=== PATIENT | male | born 1940 | race Caucasian/White ===

== ENCOUNTER 2016-09-15 09:24 | Emergency (ER) | payer MEDICARE, BC ==
--- NOTE | 2016-09-15 10:01 | Emergency Department Record ---
History of Present Illness - General Chief Complaint: Back Pain/Injury Stated Complaint: BACK PAIN Time Seen by Provider: 09/15/16 10:00 Source: Patient, RN notes reviewed - History of Present Illness Initial Comments: left flank pain for 2 weeks and no injuries and no vomiting or dysuria or diarrhea. No pulsating masses palpated. Onset/Timin -: Week(s) Similar Symptoms Previously: Yes Place: Other Radiation: Abdomen Severity scale (1-10): 8 Quality: Stabbing Consistency: Intermittent Improves With: None Worsens With: Deep breaths/cough, Movement, Other Context: Unknown Associated Symptoms: Abdominal pain, Constipation Treatments Prior to Arrival: Other medications - Related Data Home Medications Medication Instructions Recorded Confirmed Last Taken Aspirin [Aspir-Low] 81 mg PO DAILY 09/15/16 09/15/16 09/14/16 Atorvastatin Calcium [Lipitor] 40 mg PO DAILY 09/15/16 09/15/16 09/14/16 Calcium Carbonate [Calcium] 600 mg PO DAILY 09/15/16 09/15/16 09/14/16 Magnesium Oxide [Mag Ox] 400 mg PO DAILY 09/15/16 09/15/16 09/14/16 Metoprolol Tartrate 25 mg PO DAILY 09/15/16 09/15/16 09/14/16 Multivitamin [Multi-Vitamin Daily] 1 each PO DAILY 09/15/16 09/15/16 09/14/16 [place]-3 Fatty Acids/Fish Oil [Fish 1 each PO DAILY 09/15/16 09/15/16 09/14/16 Oil 1,000 mg Capsule] Previous Rx's Medication Instructions Recorded Cyclobenzaprine HCl [Flexeril] 5 mg PO TID #20 tab 09/15/16 Naproxen [Naprosyn] 500 mg PO BID #30 tablet 09/15/16 Allergies Allergy/AdvReac Type Severity Reaction Status Date / Time No Known Drug Allergies Allergy Verified 09/15/16 09:56 Travel Screening - Travel/Exposure Within Last 30 Days Have you traveled within the last 30 days?: No - Travel/Exposure Within Last Year Have you traveled outside the [place] in the last year?: No - Additonal Travel Details Have you been exposed to anyone with a communicable illness?: No - Travel Symptoms Symptom Screening: None Review of Systems Reviewed: No additional complaints except as noted below Constitutional: Reports: As per HPI. Denies: Chills, Fever, Malaise, Night sweats, Weakness, Weight change Eyes: Reports: As per HPI. Denies: Eye discharge, Eye pain, Photophobia, Vision change ENT: Reports: As per HPI. Denies: Congestion, Dental pain, Ear pain, Epistaxis , Hearing loss, Throat pain Respiratory: Reports: As per HPI. Denies: Cough, Dyspnea, Hemoptysis, Stridor, Wheezes Cardiovascular: Reports: As per HPI. Denies: Arrhythmia, Chest pain, Dyspnea on exertion, Edema, Murmurs, Orthopnea, Palpitations, Paroxysmal nocturnal dyspnea, Rheumatic Fever, Syncope Endocrine: Reports: As per HPI. Denies: Fatigue, Heat or cold intolerance, Polydipsia, Polyuria Gastrointestinal: Reports: As per HPI. Denies: Abdominal pain, Constipation, Diarrhea, Hematemesis, Hematochezia, Melena, Nausea, Vomiting Genitourinary: Reports: As per HPI. Denies: Dysuria, Frequency, Hematuria, Incontinence, Retention, Testicular pain, Testicular mass, Urgency Musculoskeletal: Reports: As per HPI. Denies: Arthralgia, Back pain, Gout, Joint swelling, Myalgia, Neck pain Skin: Reports: As per HPI. Denies: Bruising, Change in color, Change in hair/ nails, Lesions, Pruritus, Rash Neurological: Reports: As per HPI. Denies: Abnormal gait, Confusion, Headache, Numbness, Paresthesias, Seizure, Tingling, Tremors, Vertigo, Weakness Psychiatric: Reports: As per HPI. Denies: Anxiety, Auditory hallucinations, Depression, Homicidal thoughts, Suicidal thoughts, Visual hallucinations Hematological/Lymphatic: Reports: As per HPI. Denies: Anemia, Blood Clots, Easy bleeding, Easy bruising, Swollen glands Past Medical History - SOCIAL HISTORY Smoking Status: Current every day smoker Alcohol Use: Heavy Alcohol Use Comment: 2-3 daily Drug Use: None - RESPIRATORY Hx Respiratory Disorders: Yes Comment:: Lung lobe removal. - CARDIOVASCULAR Hx Cardio Disorders: Yes Comment:: cardiac bypass - NEURO Hx Neuro Disorders: No - GI Hx GI Disorders: No - Hx Genitourinary Disorders: No - ENDOCRINE Hx Endocrine Disorders: No - MUSCULOSKELETAL Hx Musculoskeletal Disorders: Yes Hx Arthritis: Yes - PSYCH Hx Psych Problems: No - HEMATOLOGY/ONCOLOGY Hx Hematology/Oncology Disorders: Yes Hx Cancer: Yes (lung) Family Medical History Any Significant Family History?: No Physical Exam - General General Appearance: Alert, Oriented x3, Cooperative, No acute distress - Head Head exam: Normal inspection - Eye Eye exam: Normal appearance, PERRL Pupils: Normal accommodation - ENT ENT exam: Normal exam, Mucous membranes moist, Normal external ear exam, Normal orophraynx, TM's normal bilaterally Ear exam: Normal external inspection. negative: External canal tenderness Nasal Exam: Normal inspection. negative: Discharge, Sinus tenderness Mouth exam: Normal external inspection, Tongue normal Teeth exam: Normal inspection. negative: Dental caries Throat exam: Normal inspection. negative: Tonsillar erythema, Tonsillar exudate - Neck Neck exam: Normal inspection, Full ROM. negative: Tenderness - Respiratory Respiratory exam: Normal lung sounds bilaterally. negative: Respiratory distress - Cardiovascular Cardiovascular Exam: Regular rate, Normal rhythm, Normal heart sounds - GI/Abdominal GI/Abdominal exam: Soft, Normal bowel sounds. negative: Tenderness - Rectal Rectal exam: Deferred - exam: Deferred - Extremities Extremities exam: Normal inspection, Full ROM, Normal capillary refill. negative: Tenderness - Back Back exam: Reports: Normal inspection, Full ROM, Tenderness (left flank pain but he moves around reasonably well.). Denies: Muscle spasm, Rash noted - Neurological Neurological exam: Alert, Normal gait, Oriented X3, Reflexes normal - Psychiatric Psychiatric exam: Normal affect, Normal mood - Skin Skin exam: Dry, Intact, Normal color, Warm Course Vital Signs 09/15/16 09:40 Temperature 97.9 F Pulse Rate 75 Respiratory 16 Rate Blood Pressure 152/96 Pulse Ox 97 - Reevaluation(s) Reevaluation #1: 09/15/16 12:44 feeling better Medical Decision Making - Data Complexity MDM Data: Labs Ordered and/or Reviewed, X-Ray Ordered and/or Reviewed (CT scan neg for obstructing stones ) - Lab Data Result diagrams: 09/15/16 11:20 09/15/16 11:20 Disposition Clinical Impression: Flank pain, acute Back pain Qualifiers: Back pain location: low back pain Chronicity: acute Back pain laterality: left Sciatica presence: without sciatica Qualified Code(s): M54.5 - Low back pain Lumbar strain Qualifiers: Encounter type: initial encounter Qualified Code(s): S39.012A - Strain of muscle, fascia and tendon of lower back, initial encounter Disposition: Home, Self-Care Condition: (1) Good Instructions: Low Back Strain (ED) Additional Instructions: follow up with chip [place] 4 days heat to back Prescriptions: Cyclobenzaprine HCl [Flexeril] 5 mg PO TID #20 tab Naproxen [Naprosyn] 500 mg PO BID #30 tablet Forms: Patient Portal Access Time of Disposition: 12:46
[2016-09-15] MEDS ORDERED: 0.9 % SODIUM CHLORIDE 1000ML 1,000 ML IV PRN (10:38)
[2016-09-15] MEDS ORDERED: KETOROLAC 30 MG/ML VIAL IVP ONE (10:38)
[2016-09-15 11:05] LABS: URINE APPEARANCE CLEAR; URINE BILIRUBIN NEGATIVE (NEGATIVE); URINE BLOOD NEGATIVE (NEGATIVE); URINE COLOR YELLOW; URINE GLUCOSE (UA) NEGATIVE (NEGATIVE); URINE KETONE NEGATIVE (NEGATIVE); URINE LEUKOCYTE ESTERASE NEGATIVE (NEGATIVE); URINE NITRITE NEGATIVE (NEGATIVE); URINE PROTEIN NEGATIVE (NEGATIVE); URINE UROBILINOGEN 0.2 E.U./dL (0.20 - 1.00)
[2016-09-15 11:26] LABS: BASO % 0.1 % (0-6); EOS % 2.1 % (0-6); GRAN % 66.8 % (47-80); HEMATOCRIT 45.2 % (42.0-52.0); HEMOGLOBIN 14.8 gm/dl (14.0-18.0); LYMPH % 19.2 % (16-45); MEAN CELL VOLUME 100.2 fl (81-97); MEAN CORPUSCULAR HEMOGLOBIN 32.8 pg (27-33); MEAN CORPUSCULAR HGB CONC 32.7 g/dl (32-36); MEAN PLATELET VOLUME 9.9 fl (7.4-10.4); MONO % 11.8 % (0-9); PLATELET COUNT 203 K/uL (130-400); RED BLOOD COUNT 4.51 M/uL (4.40-5.70); WHITE BLOOD COUNT W/O DIFF 7.7 K/uL (4.2-12.2)
[2016-09-15 11:37] LABS: BLOOD UREA NITROGEN 18 mg/dL (9-20); EST GLOMERULAR FILTRATION RATE > 60 ml/min; GLUCOSE,RANDOM 92 mg/dL (70-110)
== END 2016-09-15 13:03 | disposition home or self-care (01) ==
LOC: ER 09:24
DX: S39.012A Strain of muscle, fascia and tendon of lower back, initial encounter (principal); R30.0 Dysuria; X58.XXXA Exposure to other specified factors, initial encounter
CPT/HCPCS: 99284 ×2; 96374; 85025; 80048; 81003; 74176; J1885

== ENCOUNTER 2017-01-19 21:47 | Inpatient (IN) | payer MEDICARE, BC ==
[2017-01-19] MEDS ORDERED: IPRATROPIUM/ALBUTEROL (0.5MG/3MG) NEB INH ONE (22:24)
[2017-01-19] MEDS ORDERED: METHYLPREDNISOLONE PF 125MG/VIAL IVP ONE ×2 (22:53→23:33)
[2017-01-19] MEDS ORDERED: ALBUTEROL SULFATE (0.083%) 2.5 MG/3 ML NEB INH ONE (22:56)
--- NOTE | 2017-01-19 22:57 | Emergency Department Record ---
History of Present Illness - General Chief Complaint: Shortness of breath Stated Complaint: BLAKE Time Seen by Provider: 01/19/17 22:53 Source: Patient Mode of Arrival: Ambulatory Limitations: No limitations - History of Present Illness Initial Comments: 76 yo male presents to ED with a CC of cough, wheezing, and difficulty breathing for the past 1 week. Patient denies fevers, chills, or recent illness. Patient denies hisoty of COPD or asthma, but reports long smoking history as well as previous lung cancer history. Patient is concerned about possible bronchitis vs. pneumonia. MD Complaint: Cough, Shortness of breath Onset/Timin -: Week(s) Severity: Moderate Consistency: Intermittent Improves With: Nothing Worsens With: Coughing, Exertion Known History Of: Other Associated Symptoms: Cough Treatments Prior to Arrival: None - Related Data Home Oxygen Therapy: No Previous Rx's Medication Instructions Recorded Cyclobenzaprine HCl [Flexeril] 5 mg PO TID #20 tab 09/15/16 Naproxen [Naprosyn] 500 mg PO BID #30 tablet 09/15/16 Allergies Allergy/AdvReac Type Severity Reaction Status Date / Time No Known Drug Allergies Allergy Verified 09/15/16 09:56 Travel Screening - Travel/Exposure Within Last 30 Days Have you traveled within the last 30 days?: No - Travel Symptoms Symptom Screening: None Review of Systems Constitutional: Denies: Chills, Fever, Malaise, Night sweats Eyes: Denies: Eye discharge, Eye pain ENT: Reports: Congestion. Denies: Ear pain, Epistaxis Respiratory: Reports: Cough, Dyspnea, Wheezes Cardiovascular: Denies: Arrhythmia, Chest pain, Dyspnea on exertion, Orthopnea, Palpitations Endocrine: Denies: Fatigue, Heat or cold intolerance Gastrointestinal: Denies: Abdominal pain, Nausea, Vomiting Genitourinary: Denies: Incontinence, Retention Musculoskeletal: Denies: Arthralgia, Back pain, Gout, Joint swelling Skin: Denies: Bruising, Change in color, Change in hair/nails Neurological: Denies: Abnormal gait, Confusion, Headache, Seizure Psychiatric: Denies: Anxiety Hematological/Lymphatic: Denies: Anemia, Blood Clots Past Medical History - SOCIAL HISTORY Smoking Status: Current every day smoker - RESPIRATORY Hx Respiratory Disorders: Yes Comment:: Lung lobe removal. - CARDIOVASCULAR Hx Cardio Disorders: Yes Comment:: cardiac bypass - NEURO Hx Neuro Disorders: No - GI Hx GI Disorders: No - Hx Genitourinary Disorders: No - ENDOCRINE Hx Endocrine Disorders: No - MUSCULOSKELETAL Hx Musculoskeletal Disorders: Yes Hx Arthritis: Yes - PSYCH Hx Psych Problems: No - HEMATOLOGY/ONCOLOGY Hx Hematology/Oncology Disorders: Yes Hx Cancer: Yes (lung) Family Medical History Any Significant Family History?: Yes Family Hx Comment (NOT TO BE USED IN PLACE OF ITEMS BELOW): Dad w/Parkinson's Hx Heart Disease: Mother Physical Exam - General General Appearance: Alert, Oriented x3, Cooperative, Mild distress Limitations: No limitations - Head Head exam: Atraumatic, Normocephalic, Normal inspection Head exam detail: negative: Abrasion, Contusion, Moser's sign, General tenderness, Hematoma, Laceration - Eye Eye exam: Normal appearance. negative: Conjunctival injection, Periorbital swelling, Periorbital tenderness, Scleral icterus - ENT Ear exam: negative: Auricular hematoma, Auricular trauma Nasal Exam: negative: Active bleeding, Discharge, Dried blood, Foreign body Mouth exam: negative: Drooling, Laceration, Muffled voice, Tongue elevation - Neck Neck exam: Normal inspection. negative: Meningismus, Tenderness - Respiratory Respiratory exam: Decreased breath sounds, Prolonged expiratory, Wheezes - Cardiovascular Cardiovascular Exam: Regular rate, Normal rhythm, Normal heart sounds - GI/Abdominal GI/Abdominal exam: Soft. negative: Rebound, Rigid, Tenderness - Rectal Rectal exam: Deferred - exam: Deferred - Extremities Extremities exam: Normal inspection. negative: Calf tenderness, Pedal edema, Tenderness - Back Back exam: Denies: CVA tenderness (R), CVA tenderness (L) - Neurological Neurological exam: Alert, Normal gait, Oriented X3 - Psychiatric Psychiatric exam: Normal affect, Normal mood - Skin Skin exam: Normal color. negative: Abrasion Type of lesion: negative: abrasion Course Vital Signs 01/19/17 01/19/17 21:55 22:19 Temperature 98.4 F 98.3 F Pulse Rate 77 Pulse Rate [ 73 Pulse Ox Probe] Respiratory 18 24 Rate Blood Pressure 162/90 Blood Pressure 134/75 [Left Arm] Pulse Ox 88 L 93 L - Reevaluation(s) Reevaluation #1: 01/19/17 23:49 Labs reviewed and are grossly unremarkable for an acute process. CXR: Chronic changes, nothing acute. Reevaluation #2: 01/20/17 00:34 Attempted ambulating biox, patient became moderately dyspnic on examination, biox dropped to 85-86% on RA upon return to room #3. Will admit for observation for bronchospasm and hypoxia overnight. Reevaluation #3: 01/20/17 06:47 Case was discussed with Dr. Jeronimo, will accept admission at this time. Medical Decision Making - Lab Data Result diagrams: 01/19/17 23:04 01/19/17 23:04 Disposition Disposition: Admit Clinical Impression: Bronchospasm with bronchitis, acute, Hypoxia Disposition: Still a Patient at [facility] Decision to Admit: Admit from ER Decision to Admit Date: 01/20/17 Decision to Admit Time: 00:35 Condition: (2) Stable Time of Disposition: 00:35 Quality - Quality Measures Quality Measures: N/A - Blood Pressure Screening Does Patient Have Any of the Following: Active Dx of HTN Blood Pressure Classification: Hypertensive Reading Systolic Measurement: 162 Diastolic Measurement: 90 Screening for High Blood Pressure: Patient Exclusion, Hx of HTN [[id number]]
[2017-01-19 23:27] LABS: BASO % 0.2 % (0-6); EOS % 2.6 % (0-6); GRAN % 66.8 % (47-80); HEMATOCRIT 41.8 % (42.0-52.0); HEMOGLOBIN 14.1 gm/dl (14.0-18.0); LYMPH % 17.9 % (16-45); MEAN CELL VOLUME 101.5 fl (81-97); MEAN CORPUSCULAR HEMOGLOBIN 34.2 pg (27-33); MEAN CORPUSCULAR HGB CONC 33.7 g/dl (32-36); MEAN PLATELET VOLUME 10.2 fl (7.4-10.4); MONO % 12.5 % (0-9); PLATELET COUNT 196 K/uL (130-400); RED BLOOD COUNT 4.12 M/uL (4.40-5.70); RED CELL DISTRIBUTION WIDTH 13.3 % (11.5-14.5); WHITE BLOOD COUNT W/O DIFF 8.5 K/uL (4.2-12.2)
[2017-01-19 23:43] LABS: ALB/GLOB RATIO 1.2 (1.1-1.8); ALKALINE PHOSPHATASE 110 U/L (40-129); ALT/SGPT 17 U/L (<41); AST/SGOT 23 U/L (10.0-50.0); BLOOD UREA NITROGEN 14 mg/dL (8-23); CREATININE 0.9 mg/dL (0.7-1.2); EST GLOMERULAR FILTRATION RATE > 60 mL/min; GLUCOSE,RANDOM 108 mg/dL (74-109); TOTAL PROTEIN 7.3 g/dL (6.6-8.7)
[2017-01-20] MEDS ORDERED: 0.9 % SODIUM CHLORIDE 1000ML 1,000 ML IV PRN (01:36)
[2017-01-20] MEDS ORDERED: ALBUTEROL SULFATE (0.083%) 2.5 MG/3 ML NEB INH PRN (01:36)
[2017-01-20] MEDS: IPRATROPIUM/ALBUTEROL (0.5MG/3MG) NEB INH SCH ×5 (06:00→21:27)
--- NOTE | 2017-01-20 09:32 | History & Physical ---
History of Present Illness - Date of Service Date of Service for History & Physical: 01/20/17 - History of Present Illness Admitting Diagnosis: Bronchospasm with acute bronchitis. Hypoxia History of Present Illness: 76yo male with CC of difficulty breathing. He has history of lung cancer with right lobectomy in 2010, cardiac bypass in 2010, CAD, and COPD. He is a current smoker. states he has cut back to 7-10 cigarettes daily. Patient presented to the ED after 1 week of progressive shortness of breath. He was having dry cough, chills, and significant wheezing with chest congestion. While in the ED, patient was found to have oxygen saturation of 88% on room air. He had duoneb treatment with some provement in wheezing and o2 sat improved to 92% on 2L via NC. Chest XR showed chronic interstitial changes but not acute pathology. Patient received solumedrol 125mg IV and repeated breathing treatments. Wheezing and shortness of breath improved however his O2 saturation continued to drop to 88% on room air. His CBC and and CMP were unremarkable. Patient was admitted for COPD exacerbation. 01/20/17- Patient states he is feeling much better today. He continues to have a non-productive cough and wheezing but states his shortness of breath has improved. He denies fevers, chills or chest pain today. He was not sure if he had been diagnosed with COPD previously but admits to long history of smoking > 30py. He says his pcp, Dr. Jeronimo,, had given him an advair inaler to take twice daily but he only uses it when he feels like he is getting chest congestion. pcp: [facility] Travel Screening - Travel/Exposure Within Last 30 Days Have you traveled within the last 30 days?: No - Travel/Exposure Within Last Year Have you traveled outside the [place] in the last year?: No - Additonal Travel Details Have you been exposed to anyone with a communicable illness?: No - Travel Symptoms Symptom Screening: None Review of Systems Constitutional: Denies: Chills, Fever, Malaise, Night sweats Eyes: Denies: Eye discharge, Eye pain ENT: Reports: Congestion. Denies: Ear pain, Epistaxis Respiratory: Reports: Cough, Dyspnea, Wheezes Cardiovascular: Denies: Arrhythmia, Chest pain, Dyspnea on exertion, Orthopnea, Palpitations Endocrine: Denies: Fatigue, Heat or cold intolerance Gastrointestinal: Denies: Abdominal pain, Nausea, Vomiting Genitourinary: Denies: Incontinence, Retention Musculoskeletal: Denies: Arthralgia, Back pain, Gout, Joint swelling Skin: Denies: Bruising, Change in color, Change in hair/nails Neurological: Denies: Abnormal gait, Confusion, Headache, Seizure Psychiatric: Denies: Anxiety Hematological/Lymphatic: Denies: Anemia, Blood Clots Past Medical History - SOCIAL HISTORY Smoking Status: Current every day smoker - RESPIRATORY Hx Respiratory Disorders: Yes Comment:: Lung lobe removal. - CARDIOVASCULAR Hx Cardio Disorders: Yes Comment:: cardiac bypass - NEURO Hx Neuro Disorders: No - GI Hx GI Disorders: No - Hx Genitourinary Disorders: No - ENDOCRINE Hx Endocrine Disorders: No - MUSCULOSKELETAL Hx Musculoskeletal Disorders: Yes Hx Arthritis: Yes - PSYCH Hx Psych Problems: No - HEMATOLOGY/ONCOLOGY Hx Hematology/Oncology Disorders: Yes Hx Cancer: Yes (lung) Family Medical History Any Significant Family History?: Yes Family Hx Comment (NOT TO BE USED IN PLACE OF ITEMS BELOW): Dad w/Parkinson's Hx Heart Disease: Mother H&P Meds/Allergies - Allergies Allergies: Allergies Allergy/AdvReac Type Severity Reaction Status Date / Time No Known Drug Allergies Allergy Verified 09/15/16 09:56 - Home Medications Previous Rx's Medication Instructions Recorded Cyclobenzaprine HCl [Flexeril] 5 mg PO TID #20 tab 09/15/16 Naproxen [Naprosyn] 500 mg PO BID #30 tablet 09/15/16 - Active Medications Active Medications: Current Medications Albuterol Sulfate () 2.5 mg INH RESP.Q2H PRN PRN Reason: DIFFICULTY IN BREATHING Albuterol/Ipratropium (Duoneb) 3 ml INH RESP.Q4H.[facility] Last Admin: 01/20/17 06:00 Dose: 3 ml Aspirin (Ecotrin (Ec)) 81 mg PO DAILY [facility] Atorvastatin Calcium (Lipitor) 40 mg PO DAILY [facility] Azithromycin (Zithromax) 500 mg PO DAILY [facility] Sodium Chloride () 1,000 mls @ 15 mls/hr IV .Q24H PRN PRN Reason: LARGE VOLUME IV Methylprednisolone Sodium Succinate (Solu-Medrol) 60 mg IVP DAILY [facility] Metoprolol Tartrate (Lopressor) 25 mg PO DAILY [facility] Naproxen (Naprosyn) 500 mg PO BID [facility] Physical Exam - Vital Signs Vital Signs: Vital Signs - Last 24 Hrs Temp Pulse Resp BP Pulse Ox 01/20/17 01:36 97.9 F 72 20 147/66 92 L - General General Appearance: Alert, Oriented x3, Cooperative, No acute distress, Mild distress Limitations: No limitations - Head Head exam: Atraumatic, Normocephalic, Normal inspection Head exam detail: negative: Abrasion, Contusion, Moser's sign, General tenderness, Hematoma, Laceration - Eye Eye exam: Normal appearance. negative: Conjunctival injection, Periorbital swelling, Periorbital tenderness, Scleral icterus - ENT Ear exam: negative: Auricular hematoma, Auricular trauma Nasal Exam: negative: Active bleeding, Discharge, Dried blood, Foreign body Mouth exam: negative: Drooling, Laceration, Muffled voice, Tongue elevation - Neck Neck exam: Normal inspection. negative: Meningismus, Tenderness - Respiratory Respiratory exam: Decreased breath sounds, Prolonged expiratory, Wheezes ( diffuse;) - Cardiovascular Cardiovascular Exam: Regular rate, Normal rhythm, Normal heart sounds - GI/Abdominal GI/Abdominal exam: Soft. negative: Rebound, Rigid, Tenderness - Rectal Rectal exam: Deferred - exam: Deferred - Extremities Extremities exam: Normal inspection. negative: Calf tenderness, Pedal edema, Tenderness - Back Back exam: Denies: CVA tenderness (R), CVA tenderness (L) - Neurological Neurological exam: Alert, Normal gait, Oriented X3 - Psychiatric Psychiatric exam: Normal affect, Normal mood - Skin Skin exam: Normal color. negative: Abrasion Type of lesion: negative: abrasion Results - Labs Result Diagrams: 01/19/17 23:04 01/19/17 23:04 - Imaging and Cardiology Chest x-ray Status: Report reviewed (negative for acute process) VTE H&P Assessment - Risk for VTE Risk for VTE: Yes Risk Level: High Risk Assessment Date: 01/20/17 Risk Assessment Time: 15:25 VTE Orders Placed or Will Be Placed: Yes Plan - Detailed Diagnosis and Plan (1) COPD exacerbation Current Visit: Yes Status: Acute Base Code: J44.1 - CHRONIC OBSTRUCTIVE PULMONARY DISEASE W (ACUTE) EXACERBATION Comment: 01/20/17- improving. CXR negative for acute process. CBC unremarkable and patient is afebrile. Continues to have wheezing, cough and SOB increased from baseline. -continue solumedrol 60mg IV daily -continue azithromycin 500mg po daily x1 day then 250mg daily x4 days -duoneb q4H while awake with supplemental albuterol q2H prn -continue O2 to keep sat >92% -continue vitals q8H -repeat labs qam (2) Hypoxia Current Visit: Yes Status: Acute Base Code: R09.02 - HYPOXEMIA Comment: - Improved with supplemental O2 at 2L via NC to 92%. continues to drop to 88% on room air. -continue COPD pathway -continue supplemental O2 -will do home oxygen qualifier prior to discharge (3) DVT prophylaxis Current Visit: Yes Status: Acute Base Code: [id number] - Comment: 01/20/17- Patient is high risk with age and restricted mobility -lovenox 40mg sq daily for prophylaxis (4) Full code status Current Visit: Yes Status: Acute Base Code: Z78.9 - OTHER SPECIFIED HEALTH STATUS Comment: 01/20/17- patient is full code Inpatient Certification Admit to inpatient care: Based on my medical assessment, after consideration of patient's risk factors (age, co-morbidities and patient presenting symptoms and acuity), I expect that this patient will remain in the hospital greater than or equal to two midnights and that the services needed warrant inpatient care because: Patient Risk Factors: [age, COPD exacerbation, hypoxia, h/o lung cancer with lobectomy ] Estimated length of stay: [48-72H] The patient may reasonably be expected to be discharged or transferred to a hospital within 96 hours after admission to [facility]. Services needed: [IV steroids, abx, supplemental oxygen, respiratory therapy] Post hospital care (if known): [] I certify that my determination is in accordance with my understanding of Medicare requirements for reasonable and necessary inpatient services. 01/20/17 15:32
[2017-01-20] MEDS ORDERED: METHYLPREDNISOLONE PF 125MG/VIAL IVP SCH (10:00)
[2017-01-20] MEDS ORDERED: ATORVASTATIN 20 MG TABLET PO SCH ×2 (10:00→17:00)
[2017-01-20] MEDS ORDERED: METOPROLOL TART 25 MG TABLET PO SCH ×2 (10:00→17:00)
[2017-01-20] MEDS ORDERED: ASPIRIN 81 MG TABEC PO SCH ×2 (10:00→17:00)
[2017-01-20] MEDS: AZITHROMYCIN 500 MG TABLET PO SCH (10:20)
[2017-01-20] MEDS: NAPROXEN 250 MG TABLET PO SCH ×2 (10:20→10:41)
[2017-01-20] MEDS: METHYLPREDNISOLONE PF 125MG/VIAL IVP SCH (10:22)
[2017-01-20] MEDS: 0.9 % SODIUM CHLORIDE 10ML SYR IVP SCH ×2 (10:27→22:32)
[2017-01-20] MEDS: BENZONATATE 100 MG CAPSULE PO PRN (10:27)
[2017-01-20] MEDS: GUAIFENESIN 1,200 MG TABLET PO SCH ×2 (10:27→22:30)
[2017-01-20] MEDS ORDERED: NAPROXEN 250 MG TABLET PO PRN (10:40)
[2017-01-20] MEDS ORDERED: NICOTINE14 MG/24 HOUR PATCH TD SCH (15:00)
[2017-01-20] MEDS: ENOXAPARIN 40 MG/0.4 ML SYR SQ SCH (22:29)
[2017-01-21] MEDS ORDERED: ACETAMINOPHEN 500 MG TABLET PO PRN (00:44)
[2017-01-21] MEDS: BENZONATATE 100 MG CAPSULE PO PRN ×2 (00:50→09:37)
[2017-01-21] MEDS: IPRATROPIUM/ALBUTEROL (0.5MG/3MG) NEB INH SCH ×2 (05:32→10:07)
[2017-01-21 06:24] LABS: HEMATOCRIT 39.6 % (42.0-52.0); HEMOGLOBIN 13.2 gm/dl (14.0-18.0); MEAN CELL VOLUME 102.1 fl (81-97); MEAN CORPUSCULAR HGB CONC 33.3 g/dl (32-36); MEAN PLATELET VOLUME 10.2 fl (7.4-10.4); PLATELET COUNT 202 K/uL (130-400); RED BLOOD COUNT 3.88 M/uL (4.40-5.70); RED CELL DISTRIBUTION WIDTH 13.6 % (11.5-14.5); WHITE BLOOD COUNT W/O DIFF 14.6 K/uL (4.2-12.2)
[2017-01-21 06:51] LABS: ANISOCYTOSIS 1+; PLATELET ESTIMATE NORMAL (NORMAL); POIKILOCYTOSIS 1+; POLYCHROMASIA 1+
[2017-01-21 07:04] LABS: BLOOD UREA NITROGEN 18 mg/dL (8-23); CREATININE 0.8 mg/dL (0.7-1.2); EST GLOMERULAR FILTRATION RATE > 60 mL/min; GLUCOSE,RANDOM 114 mg/dL (74-109)
--- NOTE | 2017-01-21 09:16 | Discharge Summary ---
Providers Discharge Summary Date: 01/21/17 Date of admission: 01/20/17 01:19 Expected Date of Discharge: 01/21/17 Attending physician: Luis Fernando Jeronimo Primary care physician: Luis Fernando Jeronimo Physical Exam - Vital Signs Vital Signs: Vital Signs - Last 24 Hrs Temp Pulse Pulse Resp BP Pulse Ox 01/21/17 08:30 97.8 F 71 18 122/69 95 01/21/17 08:07 20 01/21/17 05:37 87 20 92 L 01/21/17 05:33 88 20 100 01/20/17 21:27 78 16 100 01/20/17 21:00 16 01/20/17 20:00 98.0 F 92 H 20 115/63 93 L 01/20/17 18:39 84 18 93 L 01/20/17 18:35 84 18 93 L 01/20/17 17:00 98.4 F 87 105/68 95 01/20/17 10:03 76 18 01/20/17 09:55 76 20 88 L 01/20/17 09:36 98.5 F 79 111/68 - General General Appearance: Alert, Oriented x3, Cooperative, No acute distress Limitations: No limitations - Head Head exam: Atraumatic, Normocephalic, Normal inspection Head exam detail: negative: Abrasion, Contusion, Moser's sign, General tenderness, Hematoma, Laceration - Eye Eye exam: Normal appearance. negative: Conjunctival injection, Periorbital swelling, Periorbital tenderness, Scleral icterus - ENT Ear exam: negative: Auricular hematoma, Auricular trauma Nasal Exam: negative: Active bleeding, Discharge, Dried blood, Foreign body Mouth exam: negative: Drooling, Laceration, Muffled voice, Tongue elevation - Neck Neck exam: Normal inspection. negative: Meningismus, Tenderness - Respiratory Respiratory exam: Decreased breath sounds, Prolonged expiratory, Wheezes ( scattered expiratory wheezes) - Cardiovascular Cardiovascular Exam: Regular rate, Normal rhythm, Normal heart sounds - GI/Abdominal GI/Abdominal exam: Soft. negative: Rebound, Rigid, Tenderness - Rectal Rectal exam: Deferred - exam: Deferred - Extremities Extremities exam: Normal inspection. negative: Calf tenderness, Pedal edema, Tenderness - Back Back exam: Denies: CVA tenderness (R), CVA tenderness (L) - Neurological Neurological exam: Alert, Normal gait, Oriented X3 - Psychiatric Psychiatric exam: Normal affect, Normal mood - Skin Skin exam: Normal color. negative: Abrasion Type of lesion: negative: abrasion Hospitalization - Hospitalization Admission Diagnosis: Bronchospasm with acute bronchitis. Hypoxia - Problem List/Discharge Diagnosis (1) COPD exacerbation Current Visit: Yes Status: Acute Base Code: J44.1 - CHRONIC OBSTRUCTIVE PULMONARY DISEASE W (ACUTE) EXACERBATION Comment: 01/21/17- continues to improve. CXR negative for acute process. WBC count up slightly to 14.2 that is most likely due to administration of IV steroids for 2 days now. Overall cough, sob and wheezing have all improved. -will plan to discharge home today with pcp follow up this week. Patient to call Dr. Jeronimo's office tomorrow to schedule. -counseled on smoking cessation x10 minutes -patients hypoxia resolved and he did not qualify for home O2 -continue prednisone 40mg po daily x2 more days starting tomorrow then taper by 10mg every 2 days. -continue azithromycin 250mg daily x3 days -duoneb q4H while awake. script written -mucinex 1200mg po bid for 7 more days along with tessalon perles 200mg po q8H prn for unrelenting cough. (2) Hypoxia Current Visit: Yes Status: Acute Base Code: R09.02 - HYPOXEMIA Comment: - Improved. Patient had home oxygen qualifier and did not qualify for home oxygen. He was not previously on home oxygen prior to admission. -script for nebulizer written along with duoneb solution to be used q4H prn sob -patient will follow up with his pcp this week. He will likely need repeat PFT' s done as it has been many years per patient since he was last tested. (3) DVT prophylaxis Current Visit: Yes Status: Acute Base Code: [id number] - Comment: 01/21/17- Patient is high risk with age and restricted mobility -lovenox 40mg sq daily for prophylaxis (4) Full code status Current Visit: Yes Status: Acute Base Code: Z78.9 - OTHER SPECIFIED HEALTH STATUS Comment: 01/21/17- patient is full code - Hospitalization Course Disposition: Home, Self-Care Hospital Course: 76yo male with CC of difficulty breathing. He has history of lung cancer with right lobectomy in 2009, cardiac bypass in 2010, CAD, and COPD. He is a current smoker. states he has cut back to 7-10 cigarettes daily. Patient presented to the ED after 1 week of progressive shortness of breath. He was having dry cough, chills, and significant wheezing with chest congestion. While in the ED, patient was found to have oxygen saturation of 88% on room air. He had duoneb treatment with some provement in wheezing and o2 sat improved to 92% on 2L via NC. Chest XR showed chronic interstitial changes but not acute pathology. Patient received solumedrol 125mg IV and repeated breathing treatments. Wheezing and shortness of breath improved however his O2 saturation continued to drop to 88% on room air. His CBC and and CMP were unremarkable. Patient was admitted for COPD exacerbation. 01/20/17- Patient states he is feeling much better today. He continues to have a non-productive cough and wheezing but states his shortness of breath has improved. He denies fevers, chills or chest pain today. He was not sure if he had been diagnosed with COPD previously but admits to long history of smoking > 30py. He says his pcp, Dr. Jeronimo,, had given him an advair inaler to take twice daily but he only uses it when he feels like he is getting chest congestion. 01/21/17- Patient states he is feeling much better than when he came in. He says he is no longer feeling short of breath and his cough has decreased. He is getting some thick, slightly yellow phlegm up with the cough. Appetite has been good and he has been up to the bathroom without his oxygen and did not feel winded. pcp: Kand[facility] Abnormal Labs: Abnormal Lab Results 01/21/17 01/21/17 Range/Units 05:45 05:45 WBC 14.6 H (4.2-12.2) K/uL RBC 3.88 L (4.40-5.70) M/uL Hgb 13.2 L (14.0-18.0) gm/dl Hct 39.6 L (42.0-52.0) % MCV 102.1 H (81-97) fl MCH 34.0 H (27-33) pg Neutrophils % 83.0 H (47-80) % Lymphocytes 7.0 L (16-45) % Monocytes 10.0 H (0-9) % Potassium 4.8 H (3.4-4.5) mmol/L Random Glucose 114 H (74-109) mg/dL Condition at Discharge: (2) Stable Discharge Medications - Discharge Medications Prescriptions: Azithromycin 250 mg PO DAILY #3 tablet Nicotine [Nicotine Patch] 1 each TD DAILY #30 patch.td24 Prednisone [Prednisone 10Mg] 10 mg PO ASDIR #12 tab Prednisone [Prednisone 20Mg] 40 mg PO DAILY #4 tab Home Medications: Ambulatory Orders Aspirin [Aspir-Low] 81 mg PO DAILY 09/15/16 [Last Taken 09/14/16] Atorvastatin Calcium [Lipitor] 40 mg PO DAILY 09/15/16 [Last Taken 09/14/16] Calcium Carbonate [Calcium] 600 mg PO DAILY 09/15/16 [Last Taken 09/14/16] Cyclobenzaprine HCl [Flexeril] 5 mg PO TID #20 tab 09/15/16 [Last Taken Unknown] Magnesium Oxide [Mag Ox] 400 mg PO DAILY 09/15/16 [Last Taken 09/14/16] Metoprolol Tartrate 25 mg PO DAILY 09/15/16 [Last Taken 09/14/16] Multivitamin [Multi-Vitamin Daily] 1 each PO DAILY 09/15/16 [Last Taken 09/14/16 ] Naproxen [Naprosyn] 500 mg PO BID #30 tablet 09/15/16 [Last Taken Unknown] [place]-3 Fatty Acids/Fish Oil [Fish Oil 1,000 mg Capsule] 1 each PO DAILY [Last Taken 09/14/16] Azithromycin 250 mg PO DAILY #3 tablet 01/21/17 [Last Taken Unknown] Nicotine [Nicotine Patch] 1 each TD DAILY #30 patch.td24 01/21/17 [Last Taken Unknown] Prednisone [Prednisone 10Mg] 10 mg PO ASDIR #12 tab 01/21/17 [Last Taken Unknown ] Prednisone [Prednisone 20Mg] 40 mg PO DAILY #4 tab 01/21/17 [Last Taken Unknown] Discharge Plan - Discharge Instructions Activity at Discharge: Resume Usual Activities As Tolerated Diet at Discharge: Regular Diet Instructions: Benzonatate (By mouth), Albuterol (By mouth), Guaifenesin (By mouth), Ipratropium/Albuterol (By breathing), How to Stop Smoking (DC), Cigarette Smoking and Your Health (GEN), Acute Bronchitis (GEN), COPD (Chronic Obstructive Pulmonary Disease) (DC), How to Use a Nebulizer (DC), How to Use a Nebulizer (GEN), How Your Lungs Work (DC), Chronic Lung Disease and Infection Prevention (DC), Dyspnea Scale and Exercise (DC), Nutrition Guidelines for People with COPD (DC) Additional Instructions: 2 Activity: up as tolerated 2 Diet: as tolerated 2 Consults: [] 2 Follow Up: [with Dr. Jeronimo in 7-10 days. Please call Sunday to schedule appt] 2 Dressing/Wound Care: (Type) (Change) 2 Additional: [Continue home medications New medications Mucinex 1200 mg twice per day for 7 more days, next dose tonight around 9pm Tessalon Pearles 200mg every 8 hours as needed for cough, next dose can be today at 5pm Duoneb nebulized four times per day and as needed for difficulty in breathing Albuterol inhaled 1-2 puffs every 4 to 6 hours as needed for difficulty in breathing, do not use this with the duoneb prednisone 40mg daily for 2 days, start tomorrow. then prednisone 30mg daily for 2 days, then 20mg daily for 2 days then 10mg daily for 2 days Azithromycin 250 mg daily for 3 more days, next dose tomorrow Stop smoking Return to the emergency room with any new or worsening symptoms] Quality Measures - Quality Measures Quality Measures: Advance Directives, Documentation of Current Medications in Medical Record, Elder Maltreatment Screen and Follow-Up Plan, Screening for High Blood Pressure and F/U Documented - Current Medications Quality Measure: Measure #130: Documentation of Current Medications Documentation of Current Medications: <Current Medications Documented/Reviewed> [G0596] - Blood Pressure Screening Quality Measure: Screening for High Blood Pressure and Follow-Up Documented Does Patient Have Any of the Following: Active Dx of HTN Blood Pressure Classification: Hypertensive Reading Systolic Measurement: 162 Diastolic Measurement: 90 Screening for High Blood Pressure: Patient Exclusion, Hx of HTN [G9094] - Advance Directives Quality Measure: Measure #47: Care Plan Advance Directives Established: No Advance Directives Information Provided To Patient: No Advance Directives on File: No Living Will: Yes Power of Beauty Counselor: Yes Power of Beauty Counselor Name: Kavin Prince Advance Care Planning: <Care Plan/Decision Maker Documented; Discussed & Documented> [3833F] - Elder Abuse Suspicion Index Screening: Elder Abuse Suspicion Index Screening Rely on people for bathing, dressing, shopping, banking, etc: No Prevented from getting food, clothes, medication, etc: No Made to feel shamed or threatened by someone: No Forced to sign papers or use money against will: No Feel afraid, touched in ways not wanted or hurt physically: No Poor eye contact, withdrawn, malnourished, cuts or bruises: No Screening Result: Negative result EASI Reference Information: Najma CHAVEZ, Myriam Gallo, Chaya Toussaint, Dontae Rossi.Development and validation of a tool to assist physicians identification of elder abuse: The Elder Abuse Suspicion Index (EASI ). Journal of Elder Abuse and Neglect, 2008; 20 (3): 276-300. - Elder Maltreatment Screen Quality Measures: Elder Maltreatment Screen and Follow-Up Plan Elder Maltreatment Screen: <Negative, No Follow-Up Plan Required> [G8734]
[2017-01-21] MEDS: GUAIFENESIN 1,200 MG TABLET PO SCH (09:37)
[2017-01-21] MEDS: AZITHROMYCIN 500 MG TABLET PO SCH (09:37)
[2017-01-21] MEDS: 0.9 % SODIUM CHLORIDE 10ML SYR IVP SCH (09:38)
[2017-01-21] MEDS: ENOXAPARIN 40 MG/0.4 ML SYR SQ SCH (09:38)
[2017-01-21] MEDS: METHYLPREDNISOLONE PF 125MG/VIAL IVP SCH (09:38)
--- NOTE | 2017-01-21 15:19 | RADIOLOGY REPORT ---
DATE: 01/19/2017 at 2316 hours. EXAM: TWO-VIEW, CHEST. HISTORY: Cough for the past week. TECHNIQUE: PA and lateral upright views of the chest were obtained. COMPARISON: 08/09/2016. FINDINGS: The patient is status post median sternotomy. Lung sutures are present at the left apex. The heart, mediastinum, and pulmonary vasculature are normal. Chronic interstitial changes are present throughout both lungs and are not significantly different. There are no visible acute infiltrates or effusions. The lungs are hyperinflated consistent with underlying chronic obstructive pulmonary disease. The bones are intact. IMPRESSION: 1. STABLE CHRONIC OBSTRUCTIVE PULMONARY DISEASE AND CHRONIC INTERSTITIAL CHANGES. 2. POSTSURGICAL CHANGES ABOVE. 3. NO ACUTE CHEST PATHOLOGY. JOB NUMBER: [id number] [facility]
== END 2017-01-21 11:50 | disposition home or self-care (01) | DRG 191 ==
LOC: ER 21:47 → OBSVTOIN 01-20 01:19 → MEDSURG 01-20 01:19
PROVIDERS: ADMIT Internal Medicine; ATTEND Internal Medicine
DX: J44.0 Chronic obstructive pulmonary disease with (acute) lower respiratory infection (principal); J20.9 Acute bronchitis, unspecified; J44.1 Chronic obstructive pulmonary disease with (acute) exacerbation; I25.810 Atherosclerosis of coronary artery bypass graft(s) without angina pectoris; F17.210 Nicotine dependence, cigarettes, uncomplicated; Z85.118 Personal history of other malignant neoplasm of bronchus and lung; Z90.2 Acquired absence of lung [part of]
CPT/HCPCS: 71020; 80048; 80053; 85025; 85027; 94620; 94640; 94760; 94762; 96374; 99223; 99239; 99285; J1650; J2930; J7613

== ENCOUNTER 2017-07-08 11:13 | Emergency (ER) | payer MEDICARE, BC ==
--- NOTE | 2017-07-08 11:55 | Emergency Department Record ---
History of Present Illness - General Chief complaint: Extremity Problem Stated complaint: NUMBNESS IN L LEG Time Seen by Provider: 07/08/17 11:39 Source: Patient Mode of Arrival: Ambulatory Limitations: No limitations - History of Present Illness Initial comments: pt was sitting in a recliner last night when he developed coldness and numbness in both extremities and buttocks. he took 2 aleve and went to bed thinking it would resolve. when he woke up this am the symptoms remained.he denies any problems with bowel or bladder. MD Complaint: Other (extreity numbness and buttock) Onset/Timin -: Hour(s) Location: Left, Right, Bilateral, Lower Leg, Thigh Improves with: Nothing Worsens with: Nothing - Related Data Previous Rx's Medication Instructions Recorded Prednisone [Prednisone 10Mg] 10 mg PO ASDIR #12 tab 01/21/17 Prednisone [Prednisone 20Mg] 40 mg PO DAILY #4 tab 01/21/17 Allergies Allergy/AdvReac Type Severity Reaction Status Date / Time No Known Drug Allergies Allergy Verified 09/15/16 09:56 Travel Screening - Travel/Exposure Within Last 30 Days Have you traveled within the last 30 days?: No - Travel/Exposure Within Last Year Have you traveled outside the [place] in the last year?: No - Additonal Travel Details Have you been exposed to anyone with a communicable illness?: No - Travel Symptoms Symptom Screening: None Review of Systems Reviewed: No additional complaints except as noted below Constitutional: Reports: As per HPI. Denies: Chills, Fever, Malaise, Night sweats, Weakness, Weight change Eyes: Reports: As per HPI. Denies: Eye discharge, Eye pain, Photophobia, Vision change ENT: Reports: As per HPI. Denies: Congestion, Dental pain, Ear pain, Epistaxis , Hearing loss, Throat pain Respiratory: Reports: As per HPI. Denies: Cough, Dyspnea, Hemoptysis, Stridor, Wheezes Cardiovascular: Reports: As per HPI. Denies: Arrhythmia, Chest pain, Dyspnea on exertion, Edema, Murmurs, Orthopnea, Palpitations, Paroxysmal nocturnal dyspnea, Rheumatic Fever, Syncope Endocrine: Reports: As per HPI. Denies: Fatigue, Heat or cold intolerance, Polydipsia, Polyuria Gastrointestinal: Reports: As per HPI. Denies: Abdominal pain, Constipation, Diarrhea, Hematemesis, Hematochezia, Melena, Nausea, Vomiting Genitourinary: Reports: As per HPI. Denies: Dysuria, Frequency, Hematuria, Incontinence, Retention, Testicular pain, Testicular mass, Urgency Musculoskeletal: Reports: As per HPI. Denies: Arthralgia, Back pain, Gout, Joint swelling, Myalgia, Neck pain Skin: Reports: As per HPI. Denies: Bruising, Change in color, Change in hair/ nails, Lesions, Pruritus, Rash Neurological: Reports: As per HPI, Numbness, Paresthesias. Denies: Abnormal gait, Confusion, Headache, Seizure, Tingling, Tremors, Vertigo, Weakness Psychiatric: Reports: As per HPI. Denies: Anxiety, Auditory hallucinations, Depression, Homicidal thoughts, Suicidal thoughts, Visual hallucinations Hematological/Lymphatic: Reports: As per HPI. Denies: Anemia, Blood Clots, Easy bleeding, Easy bruising, Swollen glands Past Medical History - SOCIAL HISTORY Smoking Status: Current every day smoker Alcohol Use: Heavy Alcohol Use Comment: daily, couple drinks daily Drug Use: None - RESPIRATORY Hx Respiratory Disorders: Yes Hx COPD: Yes Comment:: Lung lobe removal. - CARDIOVASCULAR Hx Cardio Disorders: Yes Hx Hypertension: Yes Comment:: cardiac bypass - NEURO Hx Neuro Disorders: No - GI Hx GI Disorders: No - Hx Genitourinary Disorders: No - ENDOCRINE Hx Endocrine Disorders: No - MUSCULOSKELETAL Hx Musculoskeletal Disorders: Yes Hx Arthritis: Yes - PSYCH Hx Psych Problems: No - HEMATOLOGY/ONCOLOGY Hx Hematology/Oncology Disorders: Yes Hx Cancer: Yes (lung) Family Medical History Any Significant Family History?: No Family Hx Comment (NOT TO BE USED IN PLACE OF ITEMS BELOW): Dad w/Parkinson's Hx Heart Disease: Mother Physical Exam - General General Appearance: Alert, Oriented x3, Cooperative, Mild distress - Head Head exam: Normal inspection - Eye Eye exam: Normal appearance, PERRL, EOMI Pupils: Normal accommodation - ENT ENT exam: Normal exam, Mucous membranes moist, Normal external ear exam, Normal orophraynx Ear exam: Normal external inspection. negative: External canal tenderness Nasal Exam: Normal inspection. negative: Discharge, Sinus tenderness Mouth exam: Normal external inspection, Tongue normal Teeth exam: Normal inspection. negative: Dental caries Throat exam: Normal inspection. negative: Tonsillar erythema, Tonsillar exudate - Neck Neck exam: Normal inspection, Full ROM. negative: Tenderness - Respiratory Respiratory exam: Normal lung sounds bilaterally. negative: Respiratory distress - Cardiovascular Cardiovascular Exam: Regular rate, Normal rhythm, Normal heart sounds - GI/Abdominal GI/Abdominal exam: Soft, Normal bowel sounds. negative: Tenderness - Rectal Rectal exam: Deferred - exam: Deferred - Extremities Extremities exam: Normal inspection, Full ROM, Normal capillary refill. negative: Tenderness - Back Back exam: Reports: Normal inspection, Full ROM. Denies: Muscle spasm, Rash noted, Tenderness - Neurological Neurological exam: Alert, CN II-XII intact, Motor sensory deficit (parasthesias of both lower extremities), Normal gait, Oriented X3, Reflexes normal, Other ( and buttocks. there is no weakness) - Psychiatric Psychiatric exam: Normal affect, Normal mood - Skin Skin exam: Dry, Intact, Normal color, Warm Course Vital Signs 07/08/17 11:16 Temperature 97.3 F L Pulse Rate 70 Respiratory 20 Rate Blood Pressure 158/82 Pulse Ox 96 - Reevaluation(s) Reevaluation #1: 07/08/17 13:43 cts are neg. d/w dr reilly as pt needs an mri of spine. he accepted pt. Medical Decision Making - Lab Data Result diagrams: 07/08/17 12:00 07/08/17 12:00 Disposition Disposition: Transfer Clinical Impression: Numbness and tingling of both lower extremities Disposition: Acute Care Hospital Transfer Transfer To: [facility] Reason For Transfer: needs mri and neurology for symptoms Accepting Physician: dr reilly Time Discussed w/Accepting Physician: 13:51 Forms: Patient Portal Access Quality - Quality Measures Quality Measures: N/A - Blood Pressure Screening Does Patient Have Any of the Following: No Blood Pressure Classification: Pre-Hypertensive BP Reading Systolic Measurement: 158 Diastolic Measurement: 82 Screening for High Blood Pressure: < First Hypertensive BP, F/U Documented > [ G8950] First Hypertensive Follow-up Interventions: Follow-up with rescreen GT 1 day and LT 4 weeks.
[2017-07-08 12:17] LABS: BASO % 0.2 % (0-6); GRAN % 62.2 % (47-80); HEMATOCRIT 41.6 % (42.0-52.0); LYMPH % 22.1 % (16-45); MEAN CELL VOLUME 99.5 fl (81-97); MEAN CORPUSCULAR HGB CONC 33.7 g/dl (32-36); MEAN PLATELET VOLUME 10.5 fl (7.4-10.4); MONO % 13.5 % (0-9); PLATELET COUNT 203 K/uL (130-400); RED BLOOD COUNT 4.18 M/uL (4.40-5.70); RED CELL DISTRIBUTION WIDTH 13.4 % (11.5-14.5); URINE APPEARANCE SL CLOUDY; URINE BILIRUBIN NEGATIVE (NEGATIVE); URINE BLOOD NEGATIVE (NEGATIVE); URINE COLOR YELLOW; URINE GLUCOSE (UA) NEGATIVE (NEGATIVE); URINE KETONE NEGATIVE (NEGATIVE); URINE LEUKOCYTE ESTERASE NEGATIVE (NEGATIVE); URINE NITRITE NEGATIVE (NEGATIVE); URINE PROTEIN NEGATIVE (NEGATIVE); URINE UROBILINOGEN 0.2 E.U./dL (0.20 - 1.00); WHITE BLOOD COUNT W/O DIFF 5.4 K/uL (4.2-12.2)
[2017-07-08 12:25] LABS: MEAN CORPUSCULAR HEMOGLOBIN 33.4 pg (27-33)
[2017-07-08 12:32] LABS: BLOOD UREA NITROGEN 15 mg/dL (8-23)
[2017-07-08 12:33] LABS: CREATININE 0.8 mg/dL (0.7-1.2); EST GLOMERULAR FILTRATION RATE > 60 mL/min
[2017-07-08 12:35] LABS: GLUCOSE,RANDOM 91 mg/dL (74-109)
[2017-07-08 12:59] LABS: ERYTHROCYTE SEDIMENTATION RATE 2 mm/hr (0-20)
--- NOTE | 2017-07-09 10:33 | CT SCAN REPORT ---
EXAM: CT SCAN OF THE HEAD HISTORY: PATIENT HAS NUMBNESS OF THE EXTREMITIES. TECHNIQUE: Serial axial CT scan of the head was performed at 2.5 mm intervals from the base of the skull to the apex without the use of intravenous contrast. Sagittal and coronal reconstructions are provided. No comparison CT's are available. FINDINGS: The ventricles, cisterns, and sulci appear within normal limits for size, shape and attenuation. There is no mass or mass effect. The gatica and white differentiation appear within normal limits. There is no CT evidence of intra or extraaxial fluid collection to suggest bleeding. Bone windows demonstrate no CT evidence of a fracture or dislocation of the skull. Chronic small vessel ischemic changes are identified. IMPRESSION: CHRONIC SMALL VESSEL ISCHEMIC CHANGES ARE IDENTIFIED WITHOUT CT EVIDENCE OF AN ACUTE INTRACRANIAL PROCESS. JOB NUMBER: [id number] [facility]
--- NOTE | 2017-07-09 10:41 | CT SCAN REPORT ---
EXAM: CT SCAN OF THE LUMBAR SPINE HISTORY: PATIENT HAS NUMBNESS OF THE BILATERAL LOWER EXTREMITIES. TECHNIQUE: Serial axial CT scan of the lumbar spine was performed at 2.5 mm intervals from the T12 vertebral body to the sacrum without the use of intravenous contrast. Sagittal and coronal reconstructions were provided. Comparison: CT scan of the abdomen and pelvis dated 09/15/16 is provided. FINDINGS: The vertebral body height, contour, and AP alignment of the lumbar spine is within normal limits. Osteopenia of the osseous structures is noted. There is no CT evidence of a fracture or dislocation of the lumbar spine. The prevertebral soft tissue is unremarkable. The visualized kidneys and adrenal glands are unremarkable. The visualized liver and spleen are unremarkable. The aorta demonstrates normal contour and caliber. Advanced atherosclerotic disease of the abdominal aorta is noted. The visualized urinary bladder is unremarkable. Multilevel facet arthropathy is noted throughout the lumbar spine. Multilevel degenerative disk disease of the lumbar spine appears similar to the previous CT scan of the abdomen and pelvis. 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 THERE IS NO CT EVIDENCE OF AN ACUTE PROCESS INVOLVING THE LUMBAR SPINE. IF THERE IS FURTHER CLINICAL CONCERN THEN MRI OF THE LUMBAR SPINE CAN BE OBTAINED FOR FURTHER EVALUATION. JOB NUMBER: [id number] [facility]
== END 2017-07-08 15:52 | disposition short-term general hospital (02) ==
LOC: ER 11:13
DX: R20.0 Anesthesia of skin (principal); I10 Essential (primary) hypertension; J44.9 Chronic obstructive pulmonary disease, unspecified; F17.210 Nicotine dependence, cigarettes, uncomplicated; C34.90 Malignant neoplasm of unspecified part of unspecified bronchus or lung; Z95.1 Presence of aortocoronary bypass graft
CPT/HCPCS: 70450; 72131; 80048; 81003; 85025; 85651; 99285

== ENCOUNTER 2017-08-19 11:58 | Emergency (ER) | payer MEDICARE, BC ==
--- NOTE | 2017-08-19 12:22 | Emergency Department Record ---
History of Present Illness - General Chief Complaint: Wound, puncture Stated Complaint: NEEDLE STICK Time Seen by Provider: 08/19/17 12:10 Source: Patient Mode of Arrival: Ambulatory Limitations: No limitations - History of Present Illness Initial Commments: The patient found a very old syringe and needle in his bushes that he uncapped and while capping very superficially poked his R thumb. It did go thru rubber gloves and bled very minimally. The syringe says "Vet Use Only" on it and appeared very soiled and mixed in with dirt. The patient's Td is UTD. He was not sure what to do so he came to the ER. Onset/Timin -: Hour(s) Place: Home Treatments Prior to Arrival: Other Treatment Prior to Arrival Comment:: Hydrogen peroxide and neosporin - Jenise Coma Scale Eye Response: (4) Open spontaneously Motor Response: (6) Obeys commands Verbal Response: (5) Oriented Jenise Total: 15 - Related Data Hx Tetanus Toxoid Vaccination: Yes Year of Tetanus Vaccination: unknown Previous Rx's Medication Instructions Recorded Cephalexin [Keflex] 500 mg PO TID #15 cap 08/19/17 Allergies Allergy/AdvReac Type Severity Reaction Status Date / Time No Known Drug Allergies Allergy Verified 09/15/16 09:56 Travel Screening - Travel/Exposure Within Last 30 Days Have you traveled within the last 30 days?: No - Travel/Exposure Within Last Year Have you traveled outside the [place] in the last year?: No - Additonal Travel Details Have you been exposed to anyone with a communicable illness?: No - Travel Symptoms Symptom Screening: None Review of Systems Constitutional: Denies: Chills, Fever Past Medical History - SOCIAL HISTORY Smoking Status: Current every day smoker Alcohol Use: Heavy Alcohol Use Comment: 2 drinks daily Drug Use: None - RESPIRATORY Hx Respiratory Disorders: Yes Hx COPD: Yes Comment:: Lung lobe removal. - CARDIOVASCULAR Hx Cardio Disorders: Yes Hx Hypertension: Yes Comment:: cardiac bypass - NEURO Hx Neuro Disorders: No - GI Hx GI Disorders: No - Hx Genitourinary Disorders: No - ENDOCRINE Hx Endocrine Disorders: No - MUSCULOSKELETAL Hx Musculoskeletal Disorders: Yes Hx Arthritis: Yes - PSYCH Hx Psych Problems: No - HEMATOLOGY/ONCOLOGY Hx Hematology/Oncology Disorders: Yes Hx Cancer: Yes (lung) Family Medical History Any Significant Family History?: No Family Hx Comment (NOT TO BE USED IN PLACE OF ITEMS BELOW): Dad w/Parkinson's Hx Heart Disease: Mother Physical Exam - General General Appearance: Alert, Oriented x3, Cooperative, No acute distress - Head Head exam: Atraumatic, Normocephalic - Eye Eye exam: Normal appearance, PERRL - Extremities Extremities exam: Normal inspection (There is no visible PW or injury to the thumb pad.), Full ROM, Normal capillary refill. negative: Tenderness (There is no thumb tenderness to palpation.) - Neurological Neurological exam: Alert Course Vital Signs 08/19/17 12:01 Temperature 98.2 F Pulse Rate 78 Respiratory 18 Rate Blood Pressure 118/68 Pulse Ox 96 - Reevaluation(s) Reevaluation #1: I did discuss the options with the patient. His Td is UTD. I offered HIV and Hepatitis treatment and testing for the patient but he declined. I then advised him to not give blood and see his family doctor for further issues. 08/19/17 12:19 Disposition Disposition: Discharge Clinical Impression: Finger injury Qualifiers: Encounter type: initial encounter Laterality: right Qualified Code(s): S69.91XA - Unspecified injury of right wrist, hand and finger(s), initial encounter Disposition: Home, Self-Care Condition: (2) Stable Instructions: Puncture Wound (ED) Additional Instructions: Please keep the thumb clean and watch for signs of infection. Take the Keflex as directed and return to the ER for any problems. Please see your family doctor if needed this week for any testing if you change your mind about the HIV or Hepatitis. Prescriptions: Cephalexin [Keflex] 500 mg PO TID #15 cap Forms: Patient Portal Access Time of Disposition: 12:22 Quality - Quality Measures Quality Measures: N/A - Blood Pressure Screening View Details: Yes Does Patient Have Any of the Following: No Blood Pressure Classification: Normal BP Reading Systolic Measurement: 118 Diastolic Measurement: 68 Screening for High Blood Pressure: < Normal BP, F/U Not Required > [[id number]]
== END 2017-08-19 12:29 | disposition home or self-care (01) ==
LOC: ER 11:58
DX: S60.311A Abrasion of right thumb, initial encounter (principal); W45.8XXA Other foreign body or object entering through skin, initial encounter; W22.8XXA Striking against or struck by other objects, initial encounter; W46.0XXA Contact with hypodermic needle, initial encounter; Y92.007 Garden or yard of unspecified non-institutional (private) residence as the place of occurrence of the external cause
CPT/HCPCS: 99282

== ENCOUNTER 2018-11-07 12:55 | Day surgery (SDC) | payer MEDICARE, BC ==
[2018-11-07] MEDS ORDERED: LIDOCAINE 2% MDV (20MG/ML) 20ML VIAL IV ONE (12:56)
[2018-11-07] MEDS ORDERED: PROPOFOL 10 MG/ML VIAL IV ONE (12:56)
--- NOTE | 2018-11-08 18:21 | Operative Note ---
OPERATION: ESOPHAGOGASTRODUODENOSCOPY with biopsy and Dickey dilation. PREOPERATIVE DIAGNOSIS: Dysphagia. POSTOPERATIVE DIAGNOSES: 1. Duodenal apex stricture. 2. Unremarkable stomach and esophagus. PROCEDURE: After informed consent was obtained from the patient, he was placed in the left lateral decubitus position in the endoscopy suite, sedated and monitored by the department of anesthesia. A well-lubricated [id number] gastroscope was placed in the posterior oropharynx under direct visualization and passed to the proximal esophagus. The endoscope was advanced through the proximal, mid, and distal esophagus. The esophagus in its length was unremarkable. The GE junction was unremarkable. The gastric body and antrum as well as the pylorus and duodenal bulb were unremarkable. At the apex of the bulb/junction with the sweep, there was a stricture which was of moderate severity but was traversed with gentle pressure via the endoscope. The duodenal sweep appeared unremarkable. The stricture was inspected and had changes consistent with inflammatory issues. Antral biopsies and gastric biopsies were obtained. J-turn views of the proximal stomach were unremarkable. The endoscope was then straightened and retracted from the patient with no new findings noted. At this point, I performed a Dickey dilation with a 50-Swazi Dickey dilator without any resistance being encountered. The Dickey was removed. The patient was taken to the recovery area and monitored. RECOMMENDATIONS: If his dysphagia persists, I would suggest a swallowing evaluation such as a video swallow. Currently I am suspicious he may have a neuromuscular and/or motility issue causing what sounds to be some transfer dysphagia. As always, thank you for allowing me to participate in the healthcare of your patients. JD
== END 2018-11-07 14:33 | disposition home or self-care (01) ==
LOC: HOP 12:55
PROVIDERS: ATTEND Internal Medicine Gastroenterology
DX: R13.14 Dysphagia, pharyngoesophageal phase (principal); R53.1 Weakness; K29.50 Unspecified chronic gastritis without bleeding; K31.5 Obstruction of duodenum; I10 Essential (primary) hypertension; E78.00 Pure hypercholesterolemia, unspecified; E83.42 Hypomagnesemia

== ENCOUNTER 2019-04-17 07:23 | Day surgery (SDC) | payer MEDICARE, BC ==
[2019-04-17] MEDS ORDERED: LIDOCAINE 2% MDV (20MG/ML) 20ML VIAL IV ONE (07:24)
[2019-04-17] MEDS ORDERED: PROPOFOL 10 MG/ML VIAL IV ONE (07:24)
[2019-04-17] MEDS ORDERED: *PACU ONLY* KETAMINE HCL 10 MG/ML (20ML) VIAL IV ONE (07:24)
--- NOTE | 2019-04-18 10:40 | Operative Note ---
OPERATION: COLONOSCOPY with cold forceps polypectomy and biopsy. PREOPERATIVE DIAGNOSIS: Personal history of colon polyps. POSTOPERATIVE DIAGNOSES: 1. Ascending colon ulcer of unclear etiology. 2. Diminutive ascending colon polyp. PREPARATION QUALITY: Good to excellent. ESTIMATED BLOOD LOSS: Minimum. SPECIMENS: Ascending colon polyp, ascending colon ulcer. COMPLICATIONS: None apparent. PROCEDURE: After informed consent was obtained from the patient, he was placed in the left lateral decubitus position in the endoscopy suite, sedated and monitored by the department of anesthesia. Digital rectal examination was unremarkable. A well-lubricated [id number] colonoscope was inserted into the rectum and advanced to the cecum. Preparation quality was good to excellent. The cecum and cecal bulb were unremarkable. The ascending colon, however, demonstrated a erythematous fold with an ulceration of unclear significance. Biopsies were obtained. There was also a diminutive ascending colon polyp removed with a cold forceps. The remainder of the ascending colon, transverse colon, descending colon, sigmoid colon, and rectum were unrevealing. Forward and J-turn views of the rectum and anorectum were unremarkable. The endoscope was straightened, the rectal ampulla deflated, and the endoscope was removed. RECOMMENDATIONS: We will await results of tissue histology particularly of the ulcer. If there is a suggestion this is ischemic, perhaps a CTA or MRA would be helpful to further evaluate the patient's vasculature. An ascending colon ulceration, while maybe related to medication and/or prep, could also be related to mesenteric insufficiency. As far as polyp surveillance, given his age and comorbidities, I do not believe another surveillance colonoscopy would be recommended. As always, thank you for allowing me to participate in the healthcare of your patients. JD
== END 2019-04-17 09:30 | disposition home or self-care (01) ==
LOC: HOP 07:23
PROVIDERS: ATTEND Internal Medicine Gastroenterology
DX: Z09 Encounter for follow-up examination after completed treatment for conditions other than malignant neoplasm (principal); Z86.010 Personal history of colon polyps; K63.5 Polyp of colon; K63.3 Ulcer of intestine; I10 Essential (primary) hypertension; E78.00 Pure hypercholesterolemia, unspecified